=== PATIENT | male | born 1975 | race Caucasian/White ===

== ENCOUNTER 2016-04-30 16:13 | Emergency (ER) | payer BC ==
[2016-04-30] MEDS ORDERED: LORazepam 1 MG TABLET ONE ×2 (16:31→17:51)
--- NOTE | 2016-04-30 16:51 | RADIOLOGY REPORT ---
HISTORY: Chest pain. Possible pneumonia. COMPARISON: None. FINDINGS: 1 view of the chest obtained. . The heart and mediastinum are normal. The chest wall is intact. There is no pneumothorax. There is minimal multifocal hazy density in the left lower lobe, asymmetric when compared to the right. No consolidation or pleural effusion is demonstrated. There is minimal leftward convex upper thoracic curvature. IMPRESSION: Minimal hazy density in the left lower lobe, suspicious for mild pneumonia. Final Electronic Signature: This report was electronically signed by Tushar Ayala MD on 04/30/2016 4:49 PM. carmelina /
[2016-04-30 17:13] LABS: EOSINOPHILS# 0.2 X 10^3uL (0.0-0.4)
[2016-04-30 17:20] LABS: BLOOD UREA NITROGEN 24 mg/dL (9-20); CALCIUM 9.7 mg/dL (8.4-10.2); CHLORIDE 107 mmol/L (98-107); CREATININE 0.9 mg/dL (0.7-1.3); EST GLOMERULAR FILTRATION RATE > 60 mL/min; GLUCOSE 85 mg/dL (70-100); POTASSIUM 3.6 mmol/L (3.5-5.1); SODIUM 141 mmol/L (137-145)
[2016-04-30 17:23] LABS: BASOPHILS 0.5 % (0.0-2.0); EOSINOPHILS 2.2 % (0.0-6.0); HEMATOCRIT 50.3 % (42.0-54.0); HEMOGLOBIN 17.1 g/dL (14.0-18.0); LYMPHOCYTES 24.1 % (20.0-40.0); LYMPHOCYTES# 2.1 X 10^3uL (0.8-3.8); MEAN CORPUSCULAR HEMOGLOBIN 27.9 pg (29.0-35.0); MEAN PLATELET VOLUME 8.1 fL (7.4-10.4); MONOCYTES 7.5 % (2.0-10.0); MONOCYTES# 0.6 X 10^3uL (0.2-1.0); NEUTROPHILS 65.7 % (54.0-75.0); NEUTROPHILS# 5.8 X 10^3uL (2.6-6.7); PLATELET COUNT 335 X 10^3uL (130-440); RED BLOOD COUNT 6.14 X 10^6uL (4.20-6.10); RED CELL DISTRIBUTION WIDTH 12.3 % (11.5-14.5); WHITE BLOOD COUNT 8.7 X 10^3uL (3.9-10.7)
[2016-04-30] MEDS ORDERED: KETOROLAC TROMETHAMINE 30 MG/ML VIAL ONE (17:31)
[2016-04-30] MEDS ORDERED: AZITHROMYCIN 250 MG TABLET PO ONE (17:31)
[2016-04-30] MEDS ORDERED: CEFTRIAXONE SODIUM 1,000 MG/10 ML VIAL ONE (17:31)
[2016-04-30] MEDS ORDERED: IPRATROPIUM/ALBUTEROL 0.5/3 MG 3 ML AMPUL.NEB INHALATION ONE (17:32)
[2016-04-30] MEDS ORDERED: NORMAL SALINE 100 ML IV ONE (17:32)
[2016-04-30] MEDS ORDERED: TUSSIONEX PENNKINETIC SUSP 5 ML UDC ONE (19:13)
--- NOTE | 2016-04-30 19:18 | ER PHYSICIAN DOCUMENTATION ---
Physician Documentation [facility] Name:Jb Walton Age:41 yrs Sex:Male :1975 Arrival Date:04/30/2016 Time:16:13 BedTrauma A Private MD: Jon Devlin Disposition: 04/30 18:55 Critical Care: not applicable. cd Disposition: 04/30/16 18:56 Discharged to Home/Self Care. Impression: Pneumonia Viral - : Acute, LLL, Dehydration, Pleuritic Chest Pain, Anxiety Reaction. - Condition is Fair. - Discharge Instructions: DEHYDRATION (6y-Adult), PNEUMONIA (Adult), CHEST PAIN Pleurisy - PLEURISY, Anguish - ANXIETY REACTION. - Prescriptions for Zithromax Z- Prashant 250 mg Oral - take 1 tablet by ORAL route once daily for 4 days; 4 tablet. - Medical Reconciliation form form. - Follow up: Harshad Herzog MD; When: 7 - 10 days; Reason: Recheck today's complaints, Continuance of care. - Problem is new. - Symptoms have improved. - Notes: Take Ibuprofen 600mg by mouth every 6 hours with food for 3 - 4 days. Drink plenty of fluids...2 - 3 quarts of water every day. Take Zithromax 250mg by mouth every day for 4 days. Use Ventolin MDI 2 puffs every 6 hours for 2 - [address] Herzog in 7 - 10 days for recheck. HPI: 16:20 This 41 yrs old Male presents to ER via Private Vehicle with complaints of cd Chest Pain. 16:20 The patient or guardian reports chest pain that is located primarily in the anterior cd chest wall. Onset: acutely, just prior to arrival. The pain does not radiate. There has been no movement of pain. Associated signs and symptoms: Pertinent positives: cough, shortness of breath, Weakness. Patient had a recent URI that down into his chest. He presented hyperventilating, clutching his chest in pain, taking very shallow breaths, and was highly anxious., Pertinent negatives: abdominal pain, diaphoresis, lower extremity pain, lower extremity swelling, nausea, recent travel, vomiting. The chest pain is described as sharp. Duration: The patient or guardian reports a single episode, that is still ongoing. Modifying factors: the symptoms are aggravated by breathing. Severity of pain: At its worst the pain was severe in the emergency department the pain is unchanged. Risk factors for coronary artery disease include:. 16:20 Risk factors for coronary artery disease include: This patient does not have any risk cd factors for coronary artery disease. The risk factors for pulmonary embolism include: This patient does not have any risk factors for a pulmonary embolism. The patient has not experienced similar symptoms in the past. The patient has not recently seen a physician. Historical: - Allergies: No known drug Allergies; - Home Meds: 1. Pain med- does not know which, takes for arthritis - PMHx: ARTHRITIS; - PSHx: Unable to obtain; - Tetanus: unknown. - Ebola Screening: : Patient denies exposure to infectious person. Patient denies travel to an Ebola-affected area in the 21 days before illness onset. . - Social history: Smoking status: Patient states was never smoker of tobacco. Patient/guardian denies using alcohol. - Immunization history: Unable to Obtain. ROS: 16:30 ENT: Negative for injury, pain, epistaxis and discharge. cd Neck: Negative for injury, pain, stiffness and swelling. Abdomen/GI: Negative for abdominal pain, nausea, vomiting, diarrhea, constipation, distension, melena, hematochezia and hematemesis. 16:30 Back: Negative for injury, pain or muscle spasms. cd 16:30 Constitutional: Positive for poor PO intake, Negative for chills, fever. 16:30 Cardiovascular: Positive for chest pain, with cough, Negative for edema, orthopnea, palpitations. 16:30 Respiratory: Positive for cough, pleurisy, shortness of breath, Negative for hemoptysis, wheezing. 16:30 All other systems are negative. Exam: Eyes: Pupils equal round and reactive to light, extra-ocular motions intact. Lids and lashes normal. Conjunctiva and sclera are non-icteric and not injected. Cornea within normal limits. Periorbital areas with no swelling, redness, or edema. ENT: Nares patent. No nasal discharge, no septal abnormalities noted. Tympanic membranes are normal and external auditory canals are clear. Oropharynx with no redness, swelling, or masses, exudates, or evidence of obstruction, uvula midline. Mucous membranes dry 16:30 Neck: Trachea midline, no thyromegaly or masses palpated, and no cervical cd lymphadenopathy. Supple, full range of motion without nuchal rigidity, or vertebral point tenderness. No Meningismus. Abdomen/GI: Soft, non-tender, with normal bowel sounds. No distension or tympany. No guarding or rebound. No evidence of tenderness throughout. Back: No spinal tenderness. No costovertebral tenderness. Full range of motion. Skin: Warm, dry with normal turgor. Normal color with no rashes, no lesions, and no evidence of cellulitis. MS/ Extremity: Pulses equal, no cyanosis. Neurovascular intact. Full, normal range of motion. 16:30 Neuro: Awake and alert, GCS 15, oriented to person, place, time, and situation. Cranial nerves II-XII grossly intact. Motor strength 5/5 in all extremities. Sensory grossly intact. Cerebellar exam normal. Normal gait. 16:30 Constitutional: The patient appears alert, awake, non-diaphoretic, non-toxic, well developed, well nourished, agitated, anxious, in obvious distress, moderately distressed. 16:30 Chest/axilla: Inspection: normal, Palpation: tenderness, that is moderate, of the left lateral anterior chest, that partially reproduces the patient's complaints. 16:30 Cardiovascular: Rate: normal, Rhythm: regular, Pulses: no pulse deficits are appreciated, Heart sounds: normal, Edema: is not appreciated. 16:30 Respiratory: severe respiratory distress is noted, Respirations: shallow respirations, that is severe, tachypnea, that is severe, Breath sounds: rales, that are moderate, are heard in the left posterior lower lobe, rhonchi, are not appreciated, wheezing, is not appreciated. 16:30 Psych: Behavior/mood is anxious, uncooperative, Affect is animated, Oriented to person, place, time, Judgement / Insight is normal. Vital Signs: 16:20 BP 127 / 88; Pulse 77; Resp 50; Pulse Ox 99% on R/A; tg 19:13 BP 124 / 60; Pulse 80; Pulse Ox 95% on R/A; lb [place] Coma Score: 16:30 Eye Response: spontaneous(4). Verbal Response: oriented(5). Motor Response: obeys cd commands(6). Total: 15. MDM: 16:22 Patient medically screened. cd 16:25 Data interpreted: quality assurance monitor body: rate is 110 beats/min, rhythm is sinus tachycardia, cd with no ectopy, rapid ventricular response, Interpretation: tachycardia, Pulse oximetry: on room air is 100 %. Interpretation: normal. ECG:. 16:30 Differential diagnosis: acute myocardial infarction, acute pericarditis, anxiety, chest cd wall pain, costochondritis, pleurisy, pneumonia, pneumothorax, pulmonary embolus. The patient was not given aspirin in the Emergency Department due to not indicated. Patient did not receive fibrinolytic due to not indicated. 16:35 The patient's pulmonary embolism risk score was calculated as follows: the patients cd heart rate is greater than 100 beats per minute (1.5 Pts) Total Score: 0-2 points. This patient was found to be at low risk for a pulmonary embolism by using the Well's assessment criteria. 16:45 Data reviewed: vital signs, nurses notes, old medical records, EKG, radiologic studies, cd plain films, and as a result, I will continue to observe the patient, administer antibiotics Rocephin, Zithromax, administer IV fluids, NS bolus, NS maintenence, prescribe sedation medication, lorazepam. 18:50 Counseling: I had a detailed discussion with the patient and/or guardian regarding: the cd historical points, exam findings, and any diagnostic results supporting the discharge/admit diagnosis, lab results, radiology results, the need for outpatient follow up, for a recheck, with the patient's primary care provider, to return to the emergency department if symptoms worsen or persist or if there are any questions or concerns that arise at home. Response to treatment: the patient's symptoms have markedly improved after treatment, the patient's condition has returned to base line, the patient is now symptom free, and as a result, I will discharge patient. 22:50 EKG attached lb 04/30 17:25 Order name: CBC AUTO DIF, MDIF/RMOR IF IND; Complete Time: 18:20 EDMS 04/30 17:31 Interpretation: Normal. cd 04/30 17:25 Order name: BASIC METABOLIC PANEL; Complete Time: 18:20 EDMS 04/30 18:20 Interpretation: Normal Except: CARBON DIOXIDE 21; Normal., Hyoerventilation. cd 04/30 18:06 Order name: INFLUENZA A/B; Complete Time: 18:20 EDMS 04/30 18:20 Interpretation: Normal. cd 04/30 18:12 Order name: DDIMER; Complete Time: 18:20 EDMS 04/30 18:20 Interpretation: Abnormal: DDIMER 311; Mildly Elevated. cd 04/30 16:52 Order name: CHEST; SINGLE VIEW [id number]; Complete Time: 17:31 EDMS 03 06:59 Interpretation: Abnormal: Mild hazy infiltrate LLL. cd 04/30 16:23 Order name: 12-lead EKG; Complete Time: 17:09 cd 04/30 16:23 Order name: Continuous Cardiac Monitoring; Complete Time: 16:25 cd 04/30 16:23 Order name: I & O; Complete Time: 17:09 cd 04/30 16:23 Order name: Iv Saline Lock; Complete Time: 17:32 cd 04/30 16:23 Order name: Oxygen; Complete Time: 18:53 cd 04/30 16:23 Order name: Pulse Ox Continuous; Complete Time: 17:09 cd EC:30 Rate is 85 beats/min. Rhythm is regular. QRS [place] is Normal. GA interval is normal. QRS cd interval is normal. QT interval is normal. No Q waves. T waves are Normal. No ST changes noted. Clinical impression: Normal ECG and No evidence of ischemia. Interpreted by me. Dispensed Medications: Completed: NS 0.9% 1000 ml IV at bolus once Completed: Rocephin 1 grams IVPB once 16:24 Drug: Ativan 1 mg; Route: PO; tg 17:09 Follow up: Response: Anxiety decreased tg 17:31 Drug: Toradol 30 mg; Route: IVP; Site: right antecubital; lb 22:52 Follow up: Response: Pain is decreased lb 17:31 Drug: DuoNeb (Albuterol 2.5 mg, Atrovent 0.5 mg); 3 ml; Route: Nebulizer; lb 19:16 Follow up: Response: No adverse reaction lb 17:32 Drug: Rocephin 1 grams; Route: IVPB; Site: right antecubital; lb 19:15 Follow up: IV Status: Completed infusion; IV Intake: 100ml lb 17:32 Drug: Zithromax 500 mg; Route: PO; lb 17:45 Drug: NS 0.9% 1000 ml; Route: IV; Rate: bolus; Site: right antecubital; lb 19:15 Follow up: IV Status: Completed infusion; Infusion discontinued; IV Intake: 1000ml lb 18:00 Drug: Ativan 1 mg; Route: PO; lb 18:54 Follow up: Response: Anxiety decreased lb 19:03 CANCELLED (Physician Discretion): Ventolin MDI 2 puffs Inhalation Per package cd directions; 2 puffs by mouth every 6 hours for 2 - 3 days 19:14 Drug: Tussionex - HYDROcodone-Homatropine Liquid 5ml 5 ml; Route: PO; lb 19:14 Follow up: Response: Pharmacy closed - take home med pack lb Signatures: Edgar Lopez RN RN tg Jon Story MD MD cd Bollock, Lynda lb
--- NOTE | 2016-04-30 19:18 | ER NURSING DOCUMENTATION ---
Nurse's Notes [facility] Name:Jb Walton Age:41 yrs Sex:Male :1975 Arrival Date:04/30/2016 Time:16:13 BedTrauma A Private MD: Diagnosis:Pneumonia Viral-: Acute, LLL;Dehydration;Pleuritic Chest Pain;Anxiety Reaction Presentation: 04/30 16:17 Acuity: CUAUHTEMOC 2 tg 16:25 Presenting complaint: Patient states: Recent URI, now severe pain in chest when tg coughing. Hyperventilating/coughing/very anxious upon arrival. Transition of care: patient was not received from another setting of care. AIR CAT ACTIVATION no. Asprin Given n/a. 16:25 Method Of Arrival: Private Vehicle tg Triage Assessment: 16:17 General: Appears distressed, Behavior is anxious. Pain: Complains of pain in chest tg Aggravated by cough. EENT: runny nose. Neuro: Neuro: Level of Consciousness is awake, alert. Cardiovascular: Capillary refill < 3 seconds Rhythm is sinus rhythm Chest pain is described as severe. Respiratory: Respiratory pattern is hyperventilation Breath sounds are clear bilaterally. Derm: Skin is pink, warm & dry. Historical: - Allergies: No known drug Allergies; - Home Meds: 1. Pain med- does not know which, takes for arthritis - PMHx: ARTHRITIS; - PSHx: Unable to obtain; - Tetanus: unknown. - Ebola Screening: : Patient denies exposure to infectious person. Patient denies travel to an Ebola-affected area in the 21 days before illness onset. . - Social history: Smoking status: Patient states was never smoker of tobacco. Patient/guardian denies using alcohol. - Immunization history: Unable to Obtain. Screenin:12 Infectious Disease Risk Unable to Obtain. Abuse screen: Denies threats or abuse. Denies tg injuries from another. Nutritional screening: No deficits noted. Assessment: 17:46 Reassessment: pt anxious, hyperventilating. o2 sat 98 on RA. Pt encouraged and coached lb to slow breathing down. Skin warm, dry. will continue to monitor.. 18:20 Reassessment: Resp more controlled at this time. Awaiting dispo.. lb 19:12 Pain: Complains of pain in chest Pain does not radiate. Pain began 1 day ago. lb Vital Signs: 16:20 BP 127 / 88; Pulse 77; Resp 50; Pulse Ox 99% on R/A; tg 19:13 BP 124 / 60; Pulse 80; Pulse Ox 95% on R/A; lb [place] Coma Score: 16:30 Eye Response: spontaneous(4). Verbal Response: oriented(5). Motor Response: obeys cd commands(6). Total: 15. ED Course: 16:17 Patient arrived in ED. ama 16:17 Triage completed. tg 16:22 Jon Story MD is Attending Physician. cd 16:28 Edgar Lopez, KWESI is Primary Nurse. tg 16:32 Port Xray Completed. hz 16:35 EKG done. (by ED staff). Reviewed by Jon Story MD. tg 16:38 Valuables Remains with patient. athletic monitor on. Pulse ox on. tg 17:15 Inserted peripheral IV: 20 gauge in right antecubital area. sj 18:55 Harshad Herzog MD is Referral Physician. cd 19:13 Oxygen Oxygen administration via nasal cannula @ 2L/min. lb 22:50 EKG attached lb Administered Medications: Completed: NS 0.9% 1000 ml IV at bolus once Completed: Rocephin 1 grams IVPB once 16:24 Drug: Ativan 1 mg; Route: PO; tg 17:09 Follow up: Response: Anxiety decreased tg 17:31 Drug: Toradol 30 mg; Route: IVP; Site: right antecubital; lb 22:52 Follow up: Response: Pain is decreased lb 17:31 Drug: DuoNeb (Albuterol 2.5 mg, Atrovent 0.5 mg); 3 ml; Route: Nebulizer; lb 19:16 Follow up: Response: No adverse reaction lb 17:32 Drug: Rocephin 1 grams; Route: IVPB; Site: right antecubital; lb 19:15 Follow up: IV Status: Completed infusion; IV Intake: 100ml lb 17:32 Drug: Zithromax 500 mg; Route: PO; lb 17:45 Drug: NS 0.9% 1000 ml; Route: IV; Rate: bolus; Site: right antecubital; lb 19:15 Follow up: IV Status: Completed infusion; Infusion discontinued; IV Intake: 1000ml lb 18:00 Drug: Ativan 1 mg; Route: PO; lb 18:54 Follow up: Response: Anxiety decreased lb 19:03 CANCELLED (Physician Discretion): Ventolin MDI 2 puffs Inhalation Per package cd directions; 2 puffs by mouth every 6 hours for 2 - 3 days 19:14 Drug: Tussionex - HYDROcodone-Homatropine Liquid 5ml 5 ml; Route: PO; lb 19:14 Follow up: Response: Pharmacy closed - take home med pack lb Intake: 19:15 IV: 100ml; Total: 100ml. lb 19:15 IV: 1000ml; Total: 1100ml. lb Outcome: 18:56 Discharge ordered by . cd 19:13 Discharged to home ambulatory. lb 19:13 Condition: stable 19:13 Discharge Assessment: Patient awake, alert and oriented x 3. No cognitive and/or functional deficits noted. Patient verbalized understanding of disposition instructions. 19:13 Instructed on discharge instructions, follow up and referral plans. no drinking with medication, no driving heavy equipment. 19:13 IV D/Jj 19:17 Patient left the ED. lb Signatures: Edgar Lopez RN RN Jon Marcos MD MD cd Terriere, Tracy tt Averdick, Andrew, Reg Reg israel Pelayo, Consuelo Ferro lb Faiza Kinsey
== END 2016-04-30 19:18 | disposition home or self-care (01) ==
LOC: ER 16:13
DX: J12.9 Viral pneumonia, unspecified (principal); E86.0 Dehydration; R07.81 Pleurodynia; F41.9 Anxiety disorder, unspecified; R06.4 Hyperventilation
CPT/HCPCS: 36415; 71010; 80048; 85025; 85379; 87449; 93005; 94640; 96365; 96366; 96375; 99285; J0696; J1885; J7620; Q0144

== ENCOUNTER 2016-08-02 01:39 | Emergency (ER) | payer BC ==
--- NOTE | 2016-08-02 02:30 | ER NURSING DOCUMENTATION ---
Nurse's Notes [facility] Name:Jb Walton Age:41 yrs Sex:Male :1975 Arrival Date:08/02/2016 Time:01:33 Bed1 Private MD: Diagnosis:Hand Laceration Presentation: 08/02 01:35 Presenting complaint: Patient states: laceration to right thumb base. Transition of bw2 care: patient was not received from another setting of care. Complicating Factors: There are no complicating factors for this patient. 01:35 Method Of Arrival: Walk In 2 01:35 Acuity: CUAUHTEMOC 4 bw2 01:38 Notified ED Physician of patient's arrival and CC Dr. Solis notified. 2 Triage Assessment: 01:36 General: Appears in no apparent distress, Behavior is anxious, appropriate for age. bw2 Pain: Complains of pain in right thumb. Injury Description: Laceration sustained to right thumb. Historical: - Allergies: No known drug Allergies; - PMHx: ARTHRITIS; - Tetanus: < 10 years. - Ebola Screening: : Patient negative for fever greater than or equal to 101.5 degrees Fahrenheit, and additional compatible Ebola Virus Disease symptoms. Patient denies exposure to infectious person. Patient denies travel to an Ebola-affected area in the 21 days before illness onset. No symptoms or risks identified at this time. . - Immunization history: Flu Vaccine None. - Social history: Smoking status: Patient states was never smoker of tobacco. Screenin:28 Infectious Disease Risk None. Abuse screen: Denies threats or abuse. Denies injuries bw2 from another. Nutritional screening: No deficits noted. Assessment: 02:25 See Triage Assessment done by same RN. bw2 02:28 Injury Description: Laceration is clean. bw2 02:28 Musculoskeletal: No deficits noted. bw2 Vital Signs: 01:34 BP 128 / 97 LA Sitting (auto/reg); Pulse 85 LA; Resp 20 S; Temp 98.2(O); Pulse Ox 94% em3 on R/A; Weight 77.11 kg (R); Height 5 ft. 6 in. (167.64 cm) (R); Pain 4/10; 01:34 Body Mass Index 27.44 (77.11 kg, 167.64 cm) em3 ED Course: 01:33 Patient arrived in ED. em3 01:35 Wisely, Nadia is Primary Nurse. bw2 01:36 Triage completed. bw2 01:37 Valuables Remains with patient Patient has correct armband on for positive em3 identification. Bed in low position. Call light in reach. 01:54 Yury Solis MD is Attending Physician. al Administered Medications: No medications were administered Outcome: 02:05 Discharge ordered by . al 02:25 Discharged to home ambulatory. 2 02:25 Condition: improved 02:25 Discharge Assessment: Patient awake, alert and oriented x 3. No cognitive and/or functional deficits noted. Patient verbalized understanding of disposition instructions. 02:25 Discharge instructions given to patient, Instructed on discharge instructions, follow up and referral plans. wound care, Demonstrated understanding of instructions. 02:29 Patient left the ED. bw2 08/03 16:31 Discharge F/U Call: Unable to reach: non-working number cb Signatures: Kathryn Arguello RN RN cb Chew, Scott, MD MD al Marshall Mac em3 Nadia Camargo bw2
--- NOTE | 2016-08-02 02:30 | ER PHYSICIAN DOCUMENTATION ---
Physician Documentation [facility] Name:Jb Walton Age:41 yrs Sex:Male :1975 Arrival Date:08/02/2016 Time:01:33 Bed1 Private MD: Yury Oliveira Disposition: 08/02/16 02:05 Discharged to Home/Self Care. Impression: Hand Laceration. - Condition is Good. - Discharge Instructions: LACERATION, Hand. - Medical Reconciliation form form. - Follow up: Emergency Department; When: 1 week; Reason: Staple/Suture removal. - Problem is new. - Symptoms have improved. HPI: 08/02 02:02 This 41 yrs old Male presents to ER via Walk In with complaints of Laceration sc To Hand - Right thumb. 02:02 The patient has a laceration related to: sheet metal ductwork. The laceration(s) sc is(are) located on the right hand. Onset: The symptom(s)/episode began/occurred just prior to arrival. Associated signs and symptoms: The patient has no apparent associated signs or symptoms. Historical: - Allergies: No known drug Allergies; - PMHx: ARTHRITIS; - Tetanus: < 10 years. - Ebola Screening: : Patient negative for fever greater than or equal to 101.5 degrees Fahrenheit, and additional compatible Ebola Virus Disease symptoms. Patient denies exposure to infectious person. Patient denies travel to an Ebola-affected area in the 21 days before illness onset. No symptoms or risks identified at this time. . - Immunization history: Flu Vaccine None. - Social history: Smoking status: Patient states was never smoker of tobacco. ROS: 02:02 Constitutional: Negative for fever, chills, and weight loss. sc Neck: Negative for injury, pain, and swelling. Back: Negative for injury and pain. MS/Extremity: Negative for injury and deformity. 02:02 Neuro: Negative for headache, weakness, numbness, tingling, and seizure. sc 02:02 Skin: Positive for laceration(s). Exam: 02:03 Musculoskeletal/extremity: Extremities: grossly normal except: laceration, ROM: intact sc in all extremities, Circulation is intact in all extremities. Sensation intact. Constitutional: This is a well developed, well nourished patient who is awake, alert, and in no acute distress. Head/Face: Normocephalic, atraumatic. Eyes: Pupils equal round and reactive to light, extra-ocular motions intact. Lids and lashes normal. Conjunctiva and sclera are non-icteric and not injected. Cornea within normal limits. Periorbital areas with no swelling, redness, or edema. 02:03 Neuro: Awake and alert, GCS 15, oriented to person, place, time, and situation. Cranial nerves II-XII grossly intact. Motor strength 5/5 in all extremities. Sensory grossly intact. Cerebellar exam normal. Normal gait. 02:05 Skin: injury, laceration(s). ak Vital Signs: 01:34 BP 128 / 97 LA Sitting (auto/reg); Pulse 85 LA; Resp 20 S; Temp 98.2(O); Pulse Ox 94% em3 on R/A; Weight 77.11 kg (R); Height 5 ft. 6 in. (167.64 cm) (R); Pain 4/10; 01:34 Body Mass Index 27.44 (77.11 kg, 167.64 cm) em3 Laceration: 02:03 Wound Repair of 1.5cm ( 0.6in ) subcutaneous laceration to right hand. Linear shaped.. sc Skin/tissue flap noted.. Minimal contamination.. Minimal bleeding noted.. Distal neuro/vascular/tendon intact. Anesthesia: Wound infiltrated with 2 mls of 2% lidocaine. Wound prep: Simple cleansing by electromyographic technician. Skin closed with 4 4-0 Nylon using Interrupted sutures. Dressed with Bacitracin, bandaid. Patient tolerated well. MDM: 01:54 Patient medically screened. ak 02:04 Differential diagnosis: superficial laceration. Data reviewed: vital signs, nurses sc notes, and as a result, I will discharge patient. Counseling: I had a detailed discussion with the patient and/or guardian regarding: the historical points, exam findings, and any diagnostic results supporting the discharge/admit diagnosis, the need for outpatient follow up, to return to the emergency department if symptoms worsen or persist or if there are any questions or concerns that arise at home. Dispensed Medications: No medications were administered Signatures: Yury Solis MD MD ak Raman, [facility]
== END 2016-08-02 02:30 | disposition home or self-care (01) ==
LOC: ER 01:39
DX: S61.411A Laceration without foreign body of right hand, initial encounter (principal); W26.8XXA Contact with other sharp object(s), not elsewhere classified, initial encounter
CPT/HCPCS: 12001; 99281